=== PATIENT | female | born 1945 | race Caucasian/White ===

== ENCOUNTER 2017-05-11 11:00 | Outpatient (RCR) | payer BC, SELFPAY ==
--- NOTE | 2017-03-17 18:16 | HP.PTEVAL_ITS ---
Patient's Visit Information LEWIS SILVA is a 71 year old F referred to Physical Therapy by Saira Lockwood with a diagnosis of L unilateral knee arthroplasty. Date of Evaluation: 03/17/17 Physical Therapist: Reynaldo Santiago - Visit Plan Frequency: 2-3x /Week Duration: 4-6 Weeks Plan: Start with ROM exercises, ext progressing to flexion. Add in quad/HS activiation exercises. Use of bike for motion and use of ice and vaso for edema control. Pt. instructed to follow up with physician about skin irritation in case the irritation warrants treatment - Subjective Subjective: Pt. is here today for her initial evaluation after unlilateral knee arthoplasty L knee. DOS: 03/11/17 completed as outpatient. Pt. is a plesant 71 y.o. female who is known to this PT after having R unilateral knee arthroplasty earlier this year. She reports that she is doing better than last time as this point. She does have pain, but not more than expected. She removed her bandaging last night, but did notice some blistering where the adhesive had been. She reports being HEP compliant with exercises from physician. Pt. arrives with walker this date and is walking with step to pattern. She denies N/ T and has no calf pain. Pt. has been getting around her house as expected. Pt. is hopeful to improve gait and ROM in order to get back to work and recreational activities without limitations. - Pain L knee Pain Intensity (Out of 10): 6 Pain Intensity Range: 5, 8 - Objective POSTURE: Pt. has decreased L wt. shift in stance, slight knee flexion during stance. Pt. uses FWW to off load. PALPATION: Pt. has normal incision at anter aspect of L knee. Pt. does have 3 blisters that have formed around incsion at steristrips. (Appears to be skin irritation). Negative sarah's sign bilaterally. Pt. has expected warmth, no other signs of infection or DVT. NEUROLOGICAL: Pt. has normal sensation to light and sharp touch throughout bilateral LEs. Pt. has 2+ bilateral achilles DTR. Pt. is able to rise on heels and toes without signs of weakness, but does need AD to stabilize. ROM: L knee - 0-5-71deg active. PROM L knee 0-4-78deg. Pt. has normal hip ROM bilaterally. MMT: RLE- ankle 5/5 througout; knee- ext 5-/5, flexion 5-/5; hip- flexion 4+/5 , abd 4/5, ext 4+/5. LLE- ankle 5/5 throughout; knee- ext 3+/5, flexion 3+/5; hip- flexion 3+/5, abd 4-/5, ext 4-/5. GAIT: Pt. ambulates with walker MANUEL without issues. Pt has decreased R step length with decreased L stance phase. Pt. lacks TKE during stance phase on L side and overall decreased tempo. STAIRS : step to pattern loading RLE only, use of BHR to complete. - Goals Goal 1:: Pt. to be I with HEP. Goal Time Frame: 4-6 Weeks Goal 2:: Pt. to have increased L knee ROM to 0-0-120deg allowing for increased tolerance to complete all functional mobility and ADLs. Goal Time Frame: 4-6 Weeks Goal 3:: Pt. to ambulate without AD unlimited distances with 0-1/10 pain in L knee allowing for increased functional mobility. Goal Time Frame: 4-6 Weeks Goal 4:: Pt. to have increased LLE strength by 1/2 grade of all effected musculature allowing increased ability to complete all functional mobility. Goal Time Frame: 4-6 Weeks Goal 5:: Pt. to sleep throughout the night with 0-1/10 pain allowing for increased quality of life. Goal Time Frame: 4-6 Weeks Goal 6:: Pt. to negotiate 1 flight of stairs with reciprocal pattern with use of 1 HR with 0-1/10 pain in L knee. Goal Time Frame: 4-6 Weeks - Rehabilitation Potential Physical Therapy Diagnosis: Pt. has signs and symptoms consistent with L unliateral knee arthroplasty. Pt. has subsequent hypomobility, weakness, increased edema, difficulty with gait and increased pain. Pt. would benefit from PT to increase ROM, decrease edema, improve functional mobility and decreased pain. Rehabilitation Potential: Excellent - Anticipated Interventions Patient/Client Instruction: Educate patient on: Condition, Plan of Care, Risk Factors, Benefits of Fitness Program For the Purpose of:: To improve health and function, To foster healthy habits, To improve decision making, To facilitate caregiver knowledge, To improve self management, To prevent re-injury, To improve ability to perform tasks related to life management, To improve tolerance to ADL's Therapeutic Exercise to Include: Strength training, Power training, Endurance training, Balance training, Postural training, Flexibilty training, Gait and locomotor training, Passive ROM, Active ROM For the Purpose of:: To decrease pain, To decrease swelling/inflammation, To increase ROM, To improve nutrient delivery to tissue, To improve muscle performance and motor function, To improve ability to perform ADL's, To increase tolerance to activity/condition/position, To improve performance and independence with ADL's, To decrease level of supervision to perform tasks, To improve gait and locomotor functions, To improve health of tissue, To decrease soft tissue restriction, To increase flexibility/ROM, To improve endurance, To improve balance, To improve safety with gait IF ES: Yes Cryotherapy (ice pack, ice massage): Yes Vasopneumatic device: Yes For the Purpose of:: To decrease pain, To decrease swelling/inflammation, To increase ROM Thank you for the opportunity to evaluate your patient. For Medicare and Medicare HMO plans, please review the plan of care and approve it. It will need to be FAXED BACK to us at [phone] for Medicare purposes. Please let me know if there are questions or concerns regarding this plan of care. Physician Signature: Date:
== END 2017-05-11 11:30 | disposition home or self-care (01) ==
LOC: PT 11:00
PROVIDERS: Family Provider Family Medicine; PCP Family Medicine; Visit Provider Physician Assistant
DX: M17.12 Unilateral primary osteoarthritis, left knee (principal)
CPT/HCPCS: 97016; 97110; 97161

== ENCOUNTER → 2017-05-26 09:59 | Outpatient (CLI) | payer BC, SELFPAY ==
[2017-05-26 11:54] LABS: Pathologist Comment May follow
[2017-05-26 11:56] LABS: AUTO B FLUID DILUENT BKGD CT WBC <0.1 RBC <0.01 (W<.1,R<.01); Appearance /Synovial Fluid Sl Cl (CLEAR); CRYSTALS, BODY FLUID CALCIUM PYROPHOS; Color / Synovial Fluid Yellow (Pale Yellow); RBC /Synovial Fluid 0.004 10^6/uL (0); Source / Synovial Fluid R KNEE; Source- Body Fluid SYNOVIAL; Synovial Fld Mononuclear WBC % 78.9 %; Synovial Fld Polynuclear WBC # 0.143 10^3/ul; Synovial Fld Polynuclear WBC % 21.1 %
[2017-05-26 11:57] LABS: Synovial Fld Mononuclear WBC # 0.536 10^3/ul
[2017-05-26 12:09] LABS: Body Fluid QC Type(s) BF1Q,BF2Q; Lymph 41 %; Monocyte /Synovial Fluid 49 %; Neutrophil 10 % (0-25)
[2017-05-27 12:41] LABS: Pathologist Review Reviewed
== END ==
PROVIDERS: Family Provider Family Medicine; PCP Family Medicine; Visit Provider Orthopaedic Surgery
DX: M25.462 Effusion, left knee (principal); Z96.652 Presence of left artificial knee joint
CPT/HCPCS: 87070; 87075; 87205; 89050; 89051; 89060

== ENCOUNTER → 2017-09-06 08:35 | Outpatient (CLI) | payer BC, SELFPAY ==
--- NOTE | 2017-09-06 08:35 | DT_ITS ---
This patient was seen during an EMR downtime September 06, 2017 - September 13, 2017. This patient may have a combination of paper and electronic documentation or all paper documentation. All documentation is viewable within the e-chart portion of [facility] for each patient visit.
[2017-09-12 03:02] LABS: Anion Gap 9 (5-15); BUN 20 mg/dL (7-18); BUN/Creat Ratio 29.9 RATIO (10-20); Calcium,Total 8.9 mg/dL (8.5-10.1); Chloride 108 mmol/L (98-107); Cholesterol 196 mg/dL (200); Creatinine, Serum 0.67 mg/dL (0.55-1.02); EST Glomerular Filtration Rate 92 mL/min (>60); Est Glom Filt Rate - Afr Amer 112 mL/min (>60); Glucose 96 mg/dL (74-106); High Density Lipoprotein 43 mg/dL; Sodium Level 143 mmol/L (136-145); Thyroid Stim Hormone (TSH) 1.01 uIU/mL (0.358-3.74); Triglycerides 147 mg/dL; Very Low Density Lipoprotein 29 mg/dL (5-40)
[2017-09-12 04:06] LABS: Hemoglobin 13.2 g/dl (12.0-15.0); Red Blood Count 4.17 M/mm3 (4.2-5.4); White Blood Count 6.1 K/mm3 (4.4-11.0)
[2017-09-12 04:07] LABS: Absolute Neutrophil Count 3.2 X10^3/uL (2.0-7.7); Basophil% 0.3 % (0-1); Eosinophils% 4.3 % (0-5); Hematocrit 40.9 % (37-47); Lymphocyte % 34.7 % (19-41); Mean Corp Hgb Conc 32.3 g/gl (32-36); Mean Corpuscular Hgb 31.7 pg (27.0-32.0); Mean Corpuscular Volume 98.1 fL (81-99); Monocyte% 7.8 % (0-10); Neutrophil # 3.19 X10^3/uL (2.7-7.7); Neutrophil % 52.7 % (47-70); POSITIVE COUNT NO; POSITIVE DIFFERENTIAL NO; POSITIVE MORPHOLOGY NO; Platelet Count 234 K/mm3 (150-450); RBC Distribution Width SD 49.3 fl (35.1-43.9)
[2017-09-12 04:08] LABS: Basophil# 0.02 X10^3/uL; Eosinophil# 0.26 X10^3/uL; Monocyte# 0.47 X10^3/uL
== END ==
PROVIDERS: Family Provider Family Medicine; PCP Family Medicine; Visit Provider Family Medicine
DX: I10 Essential (primary) hypertension (principal); E78.5 Hyperlipidemia, unspecified
CPT/HCPCS: 36415; 80048; 80061; 84443; 85025

== ENCOUNTER → 2017-09-18 07:39 | Outpatient (CLI) | payer BC, MEDICARE, SELFPAY ==
--- NOTE | 2017-09-18 07:48 | BI_ITS ---
MAMMOGRAPHY - BILATERAL SCREENING REASON FOR EXAM: Female, 72 years old. Routine annual screening examination. PERTINENT HISTORY: Grandmother with breast cancer. TECHNIQUE: Digital bilateral breast scottie (3D mammographic acquisition) in the CC and MLO projections. 2-D mediolateral oblique (MLO) and craniocaudad (CC) views of both breasts were obtained. CAD: Full Field Digital Mammography with Computer Added Detection was performed. COMPARISON: None. Baseline examination. FINDINGS: Breast Composition: There are scattered areas of fibroglandular density. There are no dominant masses or suspicious calcifications. No other significant abnormalities are identified. BI/SCREENING MAMM (CAD), BILAT IMPRESSION: Negative screening mammogram. Yearly followup mammogram recommended. (A) ASSESSMENT CATEGORY: BIRADS Category 1: Negative. A letter regarding these results will be sent to the patient by the facility within 30 days. Approximately 10% of breast cancers are not detected by mammography. A normal mammogram should not delay biopsy of a clinically suspicious abnormality. [id number] Electronically Signed: Elias John MD at 14:40 EDT Tel [phone], Service support ,
== END ==
PROVIDERS: Family Provider Family Medicine; PCP Family Medicine; Visit Provider Family Medicine
DX: Z12.31 Encounter for screening mammogram for malignant neoplasm of breast (principal)
CPT/HCPCS: 77063; 77067

== ENCOUNTER 2017-09-20 12:29 | Inpatient (IN) | payer BC, SELFPAY ==
[2017-09-14 13:22] VITALS: BP 145/75; PULSE 85; RESP 18; TEMP 36.6; O2SAT 97; BMI 35.2
[2017-09-14 16:53] LABS: Erythrocyte Sedimentation Rate 21 mm/hr (0-30)
[2017-09-20] VITALS (10 sets, daily range): BP systolic 94–183; BP diastolic 7–85; PULSE 69–80; RESP 14–18; TEMP 35.9–37.1; O2SAT 79–99; BMI 35.2
[2017-09-20] MEDS: Acetaminophen 500 MG Tablet 1000 MG PO ×2 (13:07→22:33)
[2017-09-20] MEDS: oxyCODONE HCl Cr 10 MG Tablet PO (13:08)
--- NOTE | 2017-09-20 16:40 | RAD_ITS ---
STUDY: X-RAY - LEFT KNEE REASON FOR EXAM: Female, 72 years old. Postop TECHNIQUE: 2 view(s) of the knee. COMPARISON: None. FINDINGS: Status post total left knee replacement changes are seen with implants appearing in good position. Soft tissue gas is noted anteriorly consistent with history of recent surgery. RAD/Knee 1 or 2 Views IMPRESSION: Status post total left knee replacement changes seen with implants appearing in good position. Electronically Signed: Driss Moore MD at 20:46 EDT , Service support ,
[2017-09-20] MEDS: Lactated Ringers 1,000 ML 125 ML IV (18:26)
[2017-09-20] MEDS: Aspirin 325 MG Tablet PO (18:27)
[2017-09-20] MEDS: oxyCODONE 5 MG Tablet PO ×2 (18:32→22:32)
[2017-09-20] MEDS: Losartan Potassium 100 MG Tablet PO (22:32)
[2017-09-20] MEDS: hydroCHLOROthiazide 25 MG Tablet PO (22:32)
[2017-09-21 03:11] VITALS: BP 139/75; PULSE 71; RESP 16; TEMP 36.9; O2SAT 97
[2017-09-21] MEDS: oxyCODONE 5 MG Tablet PO ×5 (04:09→21:26)
[2017-09-21] MEDS: Acetaminophen 500 MG Tablet 1000 MG PO ×3 (06:27→21:26)
[2017-09-21 06:39] LABS: Hematocrit 40.4 % (37-47); Hemoglobin 13.6 g/dl (12.0-15.0); Mean Corp Hgb Conc 33.7 g/gl (32-36); Mean Corpuscular Hgb 31.6 pg (27.0-32.0); Mean Corpuscular Volume 93.7 fL (81-99); Mean Platelet Vol. 9.6 fl (6.2-12.0); Platelet Count 204 K/mm3 (150-450); RBC Distribution Width CV 13.8 % (11.6-14.6); RBC Distribution Width SD 47.5 fl (35.1-43.9); Red Blood Count 4.31 M/mm3 (4.2-5.4); White Blood Count 7.8 K/mm3 (4.4-11.0)
[2017-09-21 06:43] LABS: Scan Indicated on CBC? Y/N NO
[2017-09-21 06:57] LABS: Anion Gap 8 (5-15); BUN 12 mg/dL (7-18); Calcium,Total 8.5 mg/dL (8.5-10.1); Chloride 104 mmol/L (98-107); Creatinine, Serum 0.63 mg/dL (0.55-1.02); EST Glomerular Filtration Rate 99 mL/min (>60); Est Glom Filt Rate - Afr Amer 120 mL/min (>60); Glucose 100 mg/dL (74-106); Potassium 3.8 mmol/L (3.5-5.1); Sodium Level 136 mmol/L (136-145)
[2017-09-21 08:13] VITALS: BP 138/70; PULSE 85; RESP 18; TEMP 37.3; O2SAT 95
[2017-09-21] MEDS: Aspirin 325 MG Tablet PO ×2 (08:17→17:10)
[2017-09-21] MEDS: Multivitamins,Therapeutic Tablet 1 TABLET PO (08:17)
[2017-09-21 08:20] VITALS: PULSE 92
--- NOTE | 2017-09-21 09:38 | PCM.PN.ORT ---
Subjective: Patient is resting comfortably in chair at bedside during exam. No adverse events overnight. Nurse states that she did bleed through that her dressing they did reinforce it and change it. The bleeding has slowed. Patient currently denies chest pain, shortness of breath, dizziness, calf pain. Doing well overall is making considerations for discharge to home later today. Objective: Patient is alert and oriented ?3. No acute distress at rest. Breathing easily without respiratory distress. Inspection of left knee reveals minimal dried bloody drainage. Negative Jayy bilaterally. Without signs of DVT. Sensation intact light touch bilateral lower extremities. Patient is able to actively plantar and dorsiflex bilateral feet against resistance. Neurovascularly intact. - Physical Exam Vital Signs Temp Pulse Resp BP Pulse Ox 99.1 F 92 18 138/70 H 95 09/21/17 08:13 09/21/17 08:20 09/21/17 08:13 09/21/17 08:13 09/21/17 08:13 Oxygen Delivery Method Room Air Weight: 83.1 kg Body Mass Index (BMI) 35.2 Intake and Output for Last 24 Hours 09/19/17 09/20/17 09/21/17 23:59 23:59 23:59 Intake Total 1700 / 1700 1974 Balance 1700 / 1700 1974 Laboratory Tests Past 24 Hrs 09/21/17 09/21/17 06:24 06:24 WBC 7.8 RBC 4.31 Hgb 13.6 Hct 40.4 MCV 93.7 MCH 31.6 MCHC 33.7 RDW 13.8 RDW Differential 47.5 H Plt Count 204 MPV 9.6 Sodium 136 Potassium 3.8 Chloride 104 Carbon Dioxide 24.0 Anion Gap 8 BUN 12 Creatinine 0.63 Estim Creat Clear Calc 37.60 Est GFR (MDRD) Af Amer 120 Est GFR (MDRD) Non-Af 99 BUN/Creatinine Ratio 19.0 Glucose 100 Calcium 8.5 Medical Necessity - Tobacco Use Smoking Status: Former smoker Tobacco Use: Cigarettes Assessment/Plan 1. Status post left TKA; postop day #1 2. Continue OxyIR and Tylenol for pain control 3. DVT prophylaxis; bilateral teds, SCDs and begin aspirin therapy 4. Begin PT/OT; weightbearing as tolerated left lower extremity with a walker 5. Encourage incentive spirometry 6. Continue discharge planning with case management 7. Orthopedically stable okay for discharge to home today if having adequate pain control and moving well with physical therapy
--- NOTE | 2017-09-21 09:45 | PCM.DC.TKR ---
Discharge Diet: No Restrictions Discharge Activity: May Not Drive, May not drive while taking narcotic pain medications., Use Walker May shower in (days): 3 Ice area for (Minutes): 20 - every hour while awake. Weight Bearing Status: Weight bearing as tolerated Elevate: Operative Extremity Additional Activity Instructions:: Wear elastic stockings for 2 weeks after your surgery. See postoperative pink sheet Call your doctor if your incision/area has: Continuous Slow Oozing, Sudden Increased Bleeding, Increased Pain/ Swelling, Increased Redness, Foul Smelling Discharge Call your doctor if you observe: Fever of 101 or Higher, Coldness, Increased Pain, Numbness or Tingling, Change in Color, Shortness of breath, Chest pain, Calf discomfort, Uncontrolled pain Remove Dressing in (days):: 3 Cleanse incision/area with: Soap & Water Additional Dressing/Incision Instructions:: See postoperative pink sheet Allergies/Adverse Reactions: Allergies Penicillins Allergy (Verified 09/14/17 13:15) Hives etodolac Adverse Reaction (Verified 09/14/17 13:16) Upset Stomach lisinopril Adverse Reaction (Verified 09/14/17 13:15) COUGH Medications to take at Discharge Cholecalciferol (VIT D3) [Vitamin D3] 1,000 unit PO MOWEFR 12/14/16 Losartan/Hydrochlorothiazide [Losartan-Hctz 100-25 mg Tab] 1 each PO DAILY 12/14/16 Multivitamin [Multiple Vitamins] 1 each PO DAILY 12/14/16 Acetaminophen [Tylenol] 1,000 mg PO Q8 #60 tab 09/21/17 Aspirin 325 mg PO BIDCM #28 tab 09/21/17 Oxycodone [Oxyir] 5 - 10 mg PO Q4H PRN PRN 7 Days #56 tablet 09/21/17 The following prescriptions were given: Oxycodone [Oxyir] 5 - 10 mg PO Q4H PRN PRN 7 Days #56 tablet PRN Reason: Mod-Severe Pain (4-1010) Acetaminophen [Tylenol] 1,000 mg PO Q8 #60 tab Aspirin 325 mg PO BIDCM #28 tab Primary Care Physician: Johny Tabor MD [Primary Care Provider] -
[2017-09-21] MEDS: Losartan Potassium 100 MG Tablet PO (09:51)
[2017-09-21] MEDS: hydroCHLOROthiazide 25 MG Tablet PO (09:51)
--- NOTE | 2017-09-21 10:39 | CASEMGMT ---
LAM DAS Face to Face with patient for initial transition planning/care coordination assessment. RN PIPPA introduced self and role at [facility]. Patient sitting in chair, alert and oriented, at bedside. Patient willing to participate in assessment and is able to answer all questions appropriately. Care providers, pharmacy, and demographics verified. See link attached. Patient wishes to discharge home and is setup with [facility] for outpatient therapy with providing transportation. Patient states she has no further needs or concerns at this time. CM to follow for discharge planning needs that may arise. Disposition Plan: Patient to discharge home with outpatient therapy, family support, and follow-up plans in place.
[2017-09-21 15:10] VITALS: BP 141/77; PULSE 83; RESP 18; TEMP 37.5; O2SAT 95
[2017-09-21] MEDS: 0.9% NaCl Peripheral Flush Adult/Peds IV (15:28)
[2017-09-21] MEDS: Ketorolac 15 MG/ML Vial IV (15:29)
[2017-09-21 20:02] VITALS: BP 121/65; PULSE 80; RESP 16; TEMP 37.1; O2SAT 95
[2017-09-22] MEDS: oxyCODONE 5 MG Tablet PO ×4 (01:21→13:45)
[2017-09-22 02:34] VITALS: BP 145/63; PULSE 77; RESP 16; TEMP 36.9; O2SAT 97
[2017-09-22 06:21] LABS: Hematocrit 40.6 % (37-47); Hemoglobin 13.4 g/dl (12.0-15.0); Mean Corpuscular Hgb 31.7 pg (27.0-32.0); Mean Platelet Vol. 9.5 fl (6.2-12.0); Platelet Count 180 K/mm3 (150-450); RBC Distribution Width SD 48.8 fl (35.1-43.9); Red Blood Count 4.23 M/mm3 (4.2-5.4); White Blood Count 8.7 K/mm3 (4.4-11.0)
[2017-09-22] MEDS: Acetaminophen 500 MG Tablet 1000 MG PO ×2 (06:21→13:44)
[2017-09-22] MEDS: Ketorolac 15 MG/ML Vial IV (06:21)
[2017-09-22] MEDS: 0.9% NaCl Peripheral Flush Adult/Peds IV (06:21)
[2017-09-22 06:24] LABS: Scan Indicated on CBC? Y/N NO
[2017-09-22 07:42] VITALS: BP 139/66; PULSE 86; RESP 18; TEMP 37.1; O2SAT 97
[2017-09-22] MEDS: Multivitamins,Therapeutic Tablet 1 TABLET PO (07:50)
[2017-09-22] MEDS: Aspirin 325 MG Tablet PO (07:50)
[2017-09-22] MEDS: hydroCHLOROthiazide 25 MG Tablet PO (08:20)
[2017-09-22] MEDS: Losartan Potassium 100 MG Tablet PO (08:20)
--- NOTE | 2017-09-22 11:56 | PCM.PN.ORT ---
Subjective: Patient sitting at bedside with her at her side. Pain well managed. Ready for discharge home. No other complaints. Objective: Dressings clean dry intact. Negative signs symptoms of DVT. Vital signs labs all within normal limits. Patient is afebrile neurovascular is otherwise intact. - Physical Exam General: Alert, Oriented x3 Psych/Mental Status: Alert and oriented to time, place, person, mood and affect Vital Signs Temp Pulse Resp BP Pulse Ox 98.8 F 86 18 139/66 H 97 09/22/17 07:42 09/22/17 07:42 09/22/17 07:42 09/22/17 07:42 09/22/17 07:42 Oxygen Delivery Method Room Air Weight: 83.1 kg Body Mass Index (BMI) 35.2 Intake and Output for Last 24 Hours 09/20/17 09/21/17 09/22/17 23:59 23:59 23:59 Intake Total 1700 / 1700 2415 / 2415 400 / 400 Balance 1700 / 1700 2415 / 2415 400 / 400 Laboratory Tests Past 24 Hrs 09/22/17 05:38 WBC 8.7 RBC 4.23 Hgb 13.4 Hct 40.6 MCV 96.0 MCH 31.7 MCHC 33.0 RDW 14.0 RDW Differential 48.8 H Plt Count 180 MPV 9.5 Medical Necessity - Tobacco Use Smoking Status: Former smoker Tobacco Use: Cigarettes Assessment/Plan Status post revision total knee 1. Continue all pain medication as prescribed 2. Continue all medications as prescribed 3. Begin outpatient therapy at [facility] 4. Follow-up as scheduled 5. Discharge home today
[2017-09-22 11:58] VITALS: BP 129/45; PULSE 94; RESP 18; TEMP 36.7; O2SAT 100
--- NOTE | 2017-09-22 15:57 | NURSING ---
Patient and family state that Dr. Aviles's PA Cynthia told them that patient could take Motrin PM if needed to help control pain. This RN notified patient and family that motrin should not be used routinely due to increased risk for stomach ulcers/ bleeding. Understanding verbalized.
== END 2017-09-22 15:46 | disposition home or self-care (01) | DRG 468 ==
LOC: ACINP 12:32 → MS3 13:52
PROVIDERS: Admitting Provider Orthopaedic Surgery; Family Provider Family Medicine; PCP Family Medicine; Visit Provider Orthopaedic Surgery
PROC: 0SPD0JZ Removal of Synthetic Substitute from Left Knee Joint, Open Approach (ICD-10-PCS; CPT 27447; principal; 2017-09-20 13:35)
DX: T84.033A Mechanical loosening of internal left knee prosthetic joint, initial encounter (principal); Z96.653 Presence of artificial knee joint, bilateral; Z98.0 Intestinal bypass and anastomosis status; I10 Essential (primary) hypertension; Z87.891 Personal history of nicotine dependence
CPT/HCPCS: 36415; 73560; 80048; 85027; 85652; 86140; 87077; 87081; 97116; 97162; 97165; 97530; 97535; C1776; J7120; A4216; J3490

== ENCOUNTER 2018-07-19 12:21 | Emergency (ER) | payer MEDICARE, SELFPAY ==
[2018-07-19 12:21] VITALS: BP 209/90; PULSE 95; RESP 20; TEMP 36.4; O2SAT 96; BMI 36.1
--- NOTE | 2018-07-19 12:37 | CT_ITS ---
STUDY: CT BRAIN WITHOUT CONTRAST REASON FOR EXAM: Female, 73 years old. History of fall. RADIATION DOSAGE (If Supplied By Facility): CTDIvol = ( 44.99 ) mGy, DLP = ( 779.24 ) mGycm TECHNIQUE: Transaxial CT imaging of the brain was performed without administration of intravenous contrast material. Individualized dose optimization techniques were used for this CT. COMPARISON: No relevant priors. FINDINGS: Normal soft tissue structures. Normal calvarium. Normal size ventricles and extra-axial spaces for the patient's age. Normal white matter tracts of the cerebral hemispheres. There are small punctate calcifications of the basal ganglia which are seen in the aging brain as a normal variant. Normal brainstem. Normal cerebellum. There is no intracranial hemorrhage. There are no findings of an acute ischemic infarction. Normal visualized paranasal sinuses. CT/Brain/Head without Contrast IMPRESSION: No acute abnormality is seen. Electronically Signed: Elias John, at 15:31 EDT , Service support ,
--- NOTE | 2018-07-19 12:38 | CT_ITS ---
STUDY: CT CERVICAL SPINE WITHOUT CONTRAST REASON FOR EXAM: Female, 73 years old. History of fall. RADIATION DOSAGE (If Supplied By Facility): CTDIvol = ( 28.33 ) mGy, DLP = ( 589.06 ) mGycm TECHNIQUE: High resolution transaxial imaging was performed without contrast material. Sagittal and coronal images were reconstructed. Individualized dose optimization techniques were used for this CT. COMPARISON: None FINDINGS: Normal craniovertebral junction. There are degenerative changes of the anterior atlantoaxial articulation. Normal odontoid process. There is straightening of the normal cervical lordosis. Normal vertebral bodies and posterior osseous elements. C2-3: Normal endplates. Normal disc height and morphology. Normal central canal and intervertebral neuroforamina. C3-4: Normal endplates. Normal disc height and morphology. Normal central canal and intervertebral neuroforamina. C4-5: Normal endplates. Normal disc height and morphology. Normal central canal and intervertebral neuroforamina. C5-6: Moderate degree of disc space narrowing and spondylosis. Uncovertebral arthrosis. Mild degree of bilateral neural foraminal stenosis worse on the right side. C6-7: Moderate degree of disc space narrowing. Spondylosis. Uncovertebral arthrosis with mild degree of bilateral neural foraminal stenosis. C7-T1: Normal endplates. Normal disc height and morphology. Normal central canal and intervertebral neuroforamina. Normal visualized soft tissue structures. CT/Spine Cervical without Contras IMPRESSION: Multilevel degenerative changes, as described above. Electronically Signed: Elias John, at 15:33 EDT , Service support ,
--- NOTE | 2018-07-19 12:38 | CT_ITS ---
STUDY: CT ABDOMEN AND PELVIS WITHOUT CONTRAST REASON FOR EXAM: Female, 73 years old. History of fall. RADIATION DOSAGE (If Supplied By Facility): CTDIvol = ( 15.41 ) mGy, DLP = ( 1160.02 ) mGycm TECHNIQUE: Transaxial images were obtained from the dome of the diaphragm to the symphysis pubis without oral contrast, and without intravenous contrast. Sagittal and coronal images were reconstructed. Individualized dose optimization techniques were used for this CT. COMPARISON: None. FINDINGS: Minimal increased markings at the lung bases suggestive of atelectasis. Coronary artery calcification. There is decreased attenuation of the liver consistent with steatosis. Normal gallbladder and extrahepatic biliary system. Normal spleen. Normal pancreas. Normal bilateral adrenal glands. Normal right kidney. Normal left kidney. Normal visualized stomach. Normal small intestine. Normal colon. The appendix is visualized and appears normal. There is diffuse atherosclerotic calcification of the abdominal aorta, without a demonstrated aneurysm. Normal inferior vena cava. There is borderline retroperitoneal lymphadenopathy with enlarged nodes no greater than 10mm in the short axis diameter. Normal urinary bladder. Normal abdominal wall. There are degenerative changes of the visualized lumbar spine. CT/Abdomen/Pelvis W IV Cont ONLY IMPRESSION: Fatty infiltration of the liver. Electronically Signed: Elias John, at 15:35 EDT , Service support ,
[2018-07-19] MEDS: Morphine 4 MG/ML Syringe IV (13:01)
[2018-07-19] MEDS: 0.9% Normal Saline 1,000 ML 150 ML IV (13:01)
[2018-07-19] MEDS: Ondansetron 4 MG/2 ML Vial IV (13:01)
[2018-07-19 13:30] LABS: Absolute Lymphocyte Count 2.55 X10^3/ul (0.83-4.51); Absolute Neutrophil Count 5.4 X10^3/uL (2.0-7.7); Basophil# 0.03 X10^3/uL; Basophil% 0.3 % (0-1); Eosinophil# 0.15 X10^3/uL; Eosinophils% 1.7 % (0-5); Hematocrit 41.7 % (37-47); Lymphocyte # 2.55 X10^3/ul (4.0); Lymphocyte % 29.5 % (19-41); Mean Corp Hgb Conc 33.6 g/gl (32-36); Mean Corpuscular Hgb 32.2 pg (27.0-32.0); Mean Corpuscular Volume 95.9 fL (81-99); Monocyte# 0.51 X10^3/uL; Monocyte% 5.9 % (0-10); Neutrophil # 5.37 X10^3/uL (2.7-7.7); Neutrophil % 62.4 % (47-70); Platelet Count 268 K/mm3 (150-450); RBC Distribution Width CV 13.6 % (11.6-14.6); RBC Distribution Width SD 47.6 fl (35.1-43.9); Red Blood Count 4.35 M/mm3 (4.2-5.4); White Blood Count 8.6 K/mm3 (4.4-11.0)
[2018-07-19 13:31] LABS: POSITIVE COUNT NO; POSITIVE DIFFERENTIAL NO; POSITIVE MORPHOLOGY NO
[2018-07-19 13:38] LABS: Anion Gap 5 (5-15); BUN 20 mg/dL (7-18); BUN/Creat Ratio 30.3 RATIO (10-20); Chloride 107 mmol/L (98-107); Creatinine, Serum 0.66 mg/dL (0.55-1.02); EST Glomerular Filtration Rate 94 mL/min (>60); Est Glom Filt Rate - Afr Amer 113 mL/min (>60); Estimated Creatinine Clearance 37.06 ml/min; Glucose 92 mg/dL (74-106); Potassium 3.8 mmol/L (3.5-5.1); Sodium Level 139 mmol/L (136-145)
[2018-07-19 13:43] LABS: Bacteria 0 SEEN /hpf (None Seen); Mucous, Urine 0 SEEN /hpf (<or=2+); Red Blood Cells-Urine 0 SEEN /hpf (0-5)
[2018-07-19 13:51] LABS: Color, Urine Yellow (Yellow); Glucose, Dipstick Normal (Normal); Ketone-Dipstick Negative (Negative); Leukocyte Esterase-Dipstick 500 /ul (Negative); Nitrite-Dipstick Negative (Negative); Occult Blood-Urine 10 /ul (Negative); Protein-Dipstick 15 mg/dl (Negative); Specific Gravity, Urine 1.025 (1.002-1.030); Urine Bilirubin Dipstick Negative (Negative); Urine Clarity Sl. Cloudy (Clear); Urine Urobilinogen Normal (Normal)
[2018-07-19 14:03] LABS: Squamous Epithelial Cells - UA 0-5 SEEN /hpf (5-10); White Blood Cells >100 SEEN /hpf (0-5)
[2018-07-19 14:21] VITALS: BP 146/74; PULSE 83; RESP 14; O2SAT 98
[2018-07-19] MEDS: Acetaminophen 325 MG Tablet 650 MG PO (15:04)
--- NOTE | 2018-07-19 15:54 | ED.DCSUM_ITS ---
- ER Visit Summary Date of Service: 07/19/18 Chief Complaint: [Fall with head and back injury] History of Present Illness: The patient is a 73 F presents to the emergency department after sustaining a fall while walking out of the shower. Patient states she slipped on the step out of the shower and fell backwards striking her neck and back of her head on the tub and her back on the step of the shower. Patient denies loss of consciousness. Patient does complain of headache. Patient complains of pain in her left flank and lower back. She denies any pain rating down her legs. She had no vomiting. [] Physical Examination: [HEENT-PERRLA, EOMI. Cranial nerves II through XII g rossly intact. TMs clear. Mucous membranes moist. No adenopathy. Patient has an area of erythema to the left posterior occiput and base of the neck. Patient has some mild C-spine tenderness on palpation. Cardiovascular-regular rate and rhythm without murmur or ectopy Lungs-clear to auscultation, chest wall stable without crepitus or subcu emphysema Abdomen-normoactive bowel sounds, soft, nontender, no rebound or rigidity, no peritoneal signs. Back exam-patient has tenderness over the left flank. There is no ecchymosis or bruising noted. Patient has some diffuse tenderness over lumbar spine. She has negative straight leg raises. Deep tendon reflexes are plus 2 out of 4 bilaterally at the patella and Achilles. Patient has normal sensation to light touch. Extremities-intact ?4, normal range of motion, normal pulses, atraumatic] Test Results: [CT scan of the brain without contrast was unremarkable. CT scan of the cervical spine showed some degenerative changes but no fractures. CT scan of the abdomen pelvis showed nothing acute. CBC with differential is normal. Chemistries unremarkable. Urinalysis obtained showed 500 leukocyte esterase and greater than 100 WBCs.] Emergency Department Course and Treatment: [Patient was started on Bactrim. Patient was given morphine and Zofran in the emergency department.] Treatment Plan: [Patient will be started on Bactrim and Percocet for pain.] Disposition: [Discharged home in stable condition] Impression: [Mechanical fall Contusion back Contusion neck Close head injury Urinary tract infection] This note was generated with [employer] software. It may contain incorrect words, spelling, and punctuation that were not noted in review of the chart prior to signing ED Disposition - Plan for ED Patient: Referrals: Johny Tabor MD [Primary Care Provider] -
--- NOTE | 2018-07-19 15:54 | ED.DEP ---
ED Disposition - Plan for ED Patient: Instructions: ED Mechanical Fall, ED UTI Cystitis Female, ED Contusion Back, ED Head Injury Closed Prescriptions: Oxycodone HCl/Acetaminophen [Percocet 5/325] 1 tab PO Q6H PRN PRN 3 Days #12 tab PRN Reason: Pain Smz/Tmp Ds [Bactrim Ds] 1 tab PO BID #10 tab Referrals: Johny Tabor MD [Primary Care Provider] - 5-7 Days
[2018-07-19] MEDS: Smz/Tmp Ds Tablet 1 TABLET PO (16:03)
[2018-07-19 16:09] VITALS: BP 162/77; PULSE 71; RESP 16; O2SAT 97
== END 2018-07-19 16:20 | disposition home or self-care (01) ==
PROVIDERS: Emergency Provider Emergency Medicine; Family Provider Family Medicine; PCP Family Medicine
DX: S10.93XA Contusion of unspecified part of neck, initial encounter (principal); S30.0XXA Contusion of lower back and pelvis, initial encounter; S09.90XA Unspecified injury of head, initial encounter; N39.0 Urinary tract infection, site not specified; I10 Essential (primary) hypertension; Z79.899 Other long term (current) drug therapy; W01.198A Fall on same level from slipping, tripping and stumbling with subsequent striking against other object, initial encounter; Y93.E1 Activity, personal bathing and showering; Y92.002 Bathroom of unspecified non-institutional (private) residence as the place of occurrence of the external cause; Y99.8 Other external cause status
CPT/HCPCS: 70450; 72125; 74177; 80048; 81001; 85025; 87077; 87086; 87088; 87186; 96361; 96374; 96375; 99283; J7030; Q9967; A4216; J2405

== ENCOUNTER → 2019-11-06 | Outpatient (CLI) | payer MEDICARE, SELFPAY ==
[2019-04-17 10:03] VITALS: BMI 36.1
[2019-11-06 12:01] LABS: Absolute Lymphocyte Count 1.85 X10^3/uL (0.83-4.51); Absolute Neutrophil Count 2.6 X10^3/uL (2.0-7.7); Basophil# 0.02 X10^3/uL; Basophil% 0.4 % (0-1); Eosinophils% 3.9 % (0-5); Hematocrit 41.4 % (37-47); Hemoglobin 13.3 g/dL (12.0-15.0); Lymphocyte # 1.85 X10^3/ul (4.0); Lymphocyte % 35.6 % (19-41); Mean Corp Hgb Conc 32.1 g/dL (32-36); Mean Corpuscular Hgb 31.7 pg (27.0-32.0); Mean Corpuscular Volume 98.6 fL (81-99); Mean Platelet Vol. 10.6 fl (6.2-12.0); Monocyte# 0.47 X10^3/uL; Monocyte% 9.1 % (0-10); NRBC Flagged by Analyzer 0 % (0-5); Neutrophil # 2.64 X10^3/uL (2.7-7.7); Neutrophil % 50.8 % (47-70); Platelet Count 238 K/mm3 (150-450); RBC Distribution Width CV 13.5 % (11.6-14.6); RBC Distribution Width SD 48.4 fl (35.1-43.9); White Blood Count 5.2 K/mm3 (4.4-11.0)
[2019-11-06 12:26] LABS: Anion Gap 5 (5-15); BUN 16 mg/dL (7-18); BUN/Creat Ratio 22.7 RATIO (10-20); Calcium,Total 8.8 mg/dL (8.5-10.1); Chloride 103 mmol/L (98-107); EST Glomerular Filtration Rate 87 mL/min (>60); Est Glom Filt Rate - Afr Amer 105 mL/min (>60); Glucose 93 mg/dL (74-106); Potassium 4.5 mmol/L (3.5-5.1); Sodium Level 139 mmol/L (136-145)
== END | disposition home or self-care (01) ==
LOC: BFHLAB 09:42
PROVIDERS: PCP Family Medicine; Visit Provider Family Medicine
DX: I10 Essential (primary) hypertension (principal)
CPT/HCPCS: 36415; 80048; 85025

== ENCOUNTER → 2019-11-14 10:43 | Outpatient (CLI) | payer MEDICARE, SELFPAY ==
[2019-04-17 10:03] VITALS: BMI 36.1
--- NOTE | 2019-11-14 11:05 | BI_ITS ---
MAMMOGRAPHY - BILATERAL SCREENING REASON FOR EXAM: Female, 74 years old. Routine annual screening examination. PERTINENT HISTORY: Grandmother with breast cancer. TECHNIQUE: Digital bilateral breast darleen (3D mammographic acquisition) in the CC and MLO projections. 2-D mediolateral oblique (MLO) and craniocaudad (CC) views of both breasts were obtained. CAD: Full Field Digital Mammography with Computer Added Detection was performed. COMPARISON: Comparison is made with prior examination dated 09/18/2017. FINDINGS: Breast Composition: There are scattered areas of fibroglandular density. There are no dominant masses or suspicious calcifications. Stable small benign appearing bilateral axillary No other significant abnormalities are identified. There has been no significant change since the prior study. BI/SCREEN MAMM (CAD) W/DARLEEN BILAT IMPRESSION: Stable bilateral screening mammogram. Yearly follow-up mammogram recommended. (A) ASSESSMENT CATEGORY: BIRADS Category 2: Benign. A letter regarding these results will be sent to the patient by the facility within 30 days. Approximately 10% of breast cancers are not detected by mammography. A normal mammogram should not delay biopsy of a clinically suspicious abnormality. [id number] Electronically Signed: Elias John, at 13:54 EDT , Service support ,
== END ==
PROVIDERS: PCP Family Medicine; Referring Provider Family Medicine; Visit Provider Family Medicine
DX: Z12.31 Encounter for screening mammogram for malignant neoplasm of breast (principal)
CPT/HCPCS: 77063; 77067

== ENCOUNTER → 2020-11-07 15:45 | Outpatient (CLI) | payer MEDICARE, SELFPAY ==
[2019-04-17 10:03] VITALS: BMI 36.1
--- NOTE | 2020-11-07 15:48 | RAD_ITS ---
STUDY: X-RAY - PELVIS AND BILATERAL HIPS REASON FOR EXAM: Severe bilateral posterior hip pain, sciatica. TECHNIQUE: AP view of the pelvis.? 2 views of the right hip, and 2 views of the left hip were obtained. COMPARISON: None. FINDINGS: Normal visualized soft tissue structures. There is bilateral sacroiliac arthrosis. Normal bilateral iliac wings and visualized sacrum. Normal bilateral superior and inferior pubic rami. There are degenerative changes of the pubic symphysis. Normal bilateral ischial tuberosities. Normal visualized right femoral head. Normal right acetabulum. Normal right hip joint. There are marginal osteophytes, mild subchondral cystic change of the acetabulum and mild to moderate joint space narrowing of the left hip joint. RAD/Hips B/L min 2 views w/ Pelvis IMPRESSION: Left hip arthrosis. Bilateral sacroiliac arthrosis. Electronically Signed: Brendon Cruz MD at 11:34 EDT Tel , Service support ,
--- NOTE | 2020-11-07 15:48 | RAD_ITS ---
STUDY: X-RAY - LUMBAR SPINE REASON FOR EXAM: Female, 75 years old. Sciatica. TECHNIQUE: 5 view(s) of the lumbar spine were obtained. COMPARISON: None FINDINGS: Osteopenia. Normal lumbar lordosis. There is no substantial scoliosis. There is a normal alignment of the vertebrae. Normal vertebral bodies and endplates. Diffuse facet sclerosis. Diffuse mild intervertebral disc space narrowing with small osteophytes most marked at L1-2 and L2-3. 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 The soft tissue structures are unremarkable. RAD/L/S Spine Min 4 Views IMPRESSION: Osteopenia with mild diffuse lumbar spondylosis. 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 No acute abnormality, evidence of erosive changes or evidence of fusion. Electronically Signed: Mandeep Vázquez MD at 10:10 EDT , Service support ,
== END ==
PROVIDERS: PCP Family Medicine; Referring Provider Family Medicine; Visit Provider Family Medicine
DX: M25.551 Pain in right hip (principal); M25.552 Pain in left hip; M54.30 Sciatica, unspecified side
CPT/HCPCS: 72110; 73521

== ENCOUNTER → 2020-11-18 | Outpatient (CLI) | payer MEDICARE, SELFPAY ==
[2019-04-17 10:03] VITALS: BMI 36.1
[2020-11-18 17:09] LABS: Probe Check PASS; Specimen Processing Control PASS
== END | disposition home or self-care (01) ==
PROVIDERS: PCP Family Medicine; Referring Provider Family Medicine; Visit Provider Family Medicine
DX: Z20.822 Contact with and (suspected) exposure to COVID-19 (principal)
CPT/HCPCS: 87635; U0005; U0003

== ENCOUNTER → 2020-11-20 15:18 | Outpatient (CLI) | payer MEDICARE, SELFPAY ==
[2019-04-17 10:03] VITALS: BMI 36.1
--- NOTE | 2020-11-20 15:20 | BI_ITS ---
MAMMOGRAPHY - BILATERAL SCREENING REASON FOR EXAM: Female, 75 years old. Routine annual screening examination. PERTINENT HISTORY: Grandmother with breast cancer. TECHNIQUE: Digital bilateral breast darleen (3D mammographic acquisition) in the CC and MLO projections. 2-D mediolateral oblique (MLO) and craniocaudad (CC) views of both breasts were obtained. CAD: Full Field Digital Mammography with Computer Added Detection was performed. COMPARISON: Comparison is made with prior study dated 11/14/2019 and 09/18/2017. FINDINGS: Breast Composition: There are scattered areas of fibroglandular density. There are no dominant masses or suspicious calcifications. Stable small bilateral benign appearing axillary lymph nodes. No other significant abnormalities are identified. There has been no significant change since the prior study. BI/SCRN MAMM (CAD)W/DARLEEN BILAT IMPRESSION: Stable bilateral screening mammogram. Yearly follow-up mammogram recommended. (A) ASSESSMENT CATEGORY: BIRADS Category 2: Benign. A letter regarding these results will be sent to the patient by the facility within 30 days. Approximately 10% of breast cancers are not detected by mammography. A normal mammogram should not delay biopsy of a clinically suspicious abnormality. [id number] Electronically Signed: Elias John MD at 15:59 EDT , Service support ,
== END ==
PROVIDERS: PCP Family Medicine; Referring Provider Family Medicine; Visit Provider Family Medicine
DX: Z12.31 Encounter for screening mammogram for malignant neoplasm of breast (principal)
CPT/HCPCS: 77063; 77067

== ENCOUNTER 2021-05-02 18:19 | Outpatient (CLI) | payer MEDICARE, SELFPAY | END 2021-05-02 23:59 | disposition short-term general hospital (02) | PROVIDERS: PCP Family Medicine; Visit Provider Family Medicine | DX: Z20.822 Contact with and (suspected) exposure to COVID-19 (principal) | CPT/HCPCS: 87635; U0003; U0005 ==

== ENCOUNTER 2021-11-04 15:26 | Emergency (ER) | payer MEDICARE, SELFPAY ==
[2021-11-04 15:27] VITALS: BP 219/111; PULSE 97; RESP 16; TEMP 36.3; O2SAT 97; BMI 36.1
[2021-11-04 15:35] VITALS: BP 219/80
--- NOTE | 2021-11-04 15:58 | EDS_ITS ---
HPI History of Present Illness Chief Complaint: Hypertension Narrative Narrative: 76-year-old female presenting from the urgent care with back pain. Patient was seen and assessed and had x-rays of the thoracic spine which were ultimately negative. It was noted at the office that she had elevated blood pressure and she was sent to the ER. Patient denies any visual complaints, lightheadedness, headache, nausea. She states he is eating and drinking normally. Is making normal urine and stool. She states she is in her normal state of health. She states that other than the back pain which started about 5 AM yesterday while she was sleeping she feels okay. She states that the pain is in her mid back and seems to radiate upwards. It is worse with twisting and bending. She does not any anterior chest pain, shortness of breath, lightheadedness. Patient currently unsure of what medication dose she is on for her losartan HCTZ. She states that while she was at the urgent care the physician she saw expressed concern that this could be an atypical chest pain and she wanted to be checked out for this. She is a previous smoker. She has no cardiac history. Her only medical problem stated is hypertension. [facility] Medical History Hypertension Home Medications cholecalciferol (vitamin D3) 25 mcg (1,000 unit) tablet 1,000 unit PO MOWEFR SUPPLEMENT 12/14/16 [History Last Taken Unknown] losartan 100 mg-hydrochlorothiazide 25 mg tablet 1 ea PO DAILY BP 12/14/16 [History Last Taken Unknown] multivitamin 1 ea PO DAILY SUPPLEMENT 12/14/16 [History Last Taken Unknown] amlodipine 5 mg tablet 5 mg PO DAILY #30 tabs 11/04/21 [Rx Last Taken Unknown] tramadol 50 mg tablet (Ultram) 50 mg PO Q8H PRN pain 3 days #12 tabs 11/04/21 [Rx Last Taken Unknown] Allergy/AdvReac Type Severity Reaction Status Date / Time Penicillins Allergy Hives Verified 11/04/21 15:29 etodolac AdvReac Upset Verified 11/04/21 15:29 Stomach lisinopril AdvReac COUGH Verified 11/04/21 15:29 Social History Smoking Status: Former smoker ROS ROS ED Constitutional Constitutional ED: Denies chills or fever(s) Eyes Eyes: Denies change in vision or diplopia ENT ENT ED: Denies rhinorrhea or sore throat Cardiovascular Cardiovascular: Denies chest pain, palpitations or racing heartbeat Respiratory/Chest Respiratory/Chest: Denies cough or dyspnea Gastrointestinal Gastrointestinal: Denies abdominal pain or constipation Genitourinary Genitourinary ED: Denies dysuria or hematuria Musculoskeletal Musculoskeletal: Denies arthralgias or back pain Integumentary Denies abscess Neurologic Neurologic: Denies headache(s) or paresthesias Psychiatric Psychiatric: Denies anxiety or depression EXAM Physical Exam Const Vital Signs: 11/04/21 15:27 11/04/21 15:35 11/04/21 15:36 Temperature 97.4 F L Temperature Source Temporal Pulse Rate 97 Respiratory Rate 16 Respiratory Effort Normal Non-Labored Respiratory Pattern Normal Blood Pressure 219/111 H 219/80 H Blood Pressure Mean 147 126 Pulse Ox 97 Oxygen Delivery Method Room Air 11/04/21 16:19 11/04/21 16:40 Temperature Temperature Source Pulse Rate 78 Respiratory Rate 20 H Respiratory Effort Respiratory Pattern Blood Pressure 188/76 H Blood Pressure Mean 113 Pulse Ox 94 Oxygen Delivery Method Room Air Room Air Positive well nourished General Appearance ED: NAD; Negative for pallor HEENT Reports moist mucous membranes Eyes PERRL and EOMs intact bilaterally Neck no lymphadenopathy Chest Wall inspection of chest normal and palpation of chest normal Resp normal respiratory effort and clear to auscultation bilaterally Auscultation: Negative for rales, rhonchi or wheezes Cardio regular rate GI normal to inspection, nondistended, normoactive bowel sounds Back/Spine Thoracic Spine / Upper Back: paraspinal muscle tenderness right T9, T10, T11 and T12 Extremity normal to inspection Neuro oriented x3 and CN's II-XII intact bilaterally Sensorium / Orientation: alert Psych mental status grossly normal Skin no rashes or lesions noted General Skin Exam: Negative for jaundice or pallor MDM MDM MDM Narrative Medical decision making narrative: Patient presenting with back pain. She wants to make sure this is not cardiac related although she does not seem to have any symptoms except for the pain here. She is on pain for greater than 24 hours. She already had a thoracic spine x-ray. Blood pressure is now 189/89. Patient cannot remember the dose of her losartan HCTZ. Heart score is 1. CBC and BMP are unremarkable. High- sensitivity troponin is 7 after over 24 hours of pain so I do not believe this is cardiac in nature. Patient was treated with morphine and Zofran with good relief of her pain. Blood pressure has come down on its own to 188/76. Chest x-ray on my interpretation shows no acute cardiopulmonary process and the radiologist agree. I spoke with Dr. Tabor who was the patient's PCP. For her blood pressure recommended starting Norvasc 5 mg p.o. daily in addition to her losartan HCTZ. The dose of her losartan HCTZ is 100/25 mg. He recommended giving her Ultram for pain at home. She is a follow-up appointment for next Wednesday. She is to keep this. Return precautions discussed. Impression: 1. Thoracic strain 2. Atypical chest pain 3. Hypertension established has had a controlled Lab Data Attestation: I reviewed the patient's lab results. Labs: Laboratory Results - last 24 hr 11/04/21 11/04/21 16:25 16:25 WBC 6.4 RBC 4.22 Hgb 13.4 Hct 40.9 MCV 96.9 MCH 31.8 MCHC 32.8 RDW Std Deviation 50.8 H RDW Coeff of Romain 14.3 Plt Count 246 MPV 10.4 Immature Gran % (Auto) 0.300 Neut % (Auto) 55.6 Lymph % (Auto) 31.4 Gallia % (Auto) 8.0 Eos % (Auto) 4.1 Baso % (Auto) 0.6 Absolute Neuts (auto) 3.5 Absolute Lymphs (auto) 2.00 Nucleated RBC % 0 Sodium 140 Potassium 4.5 Chloride 108 H Carbon Dioxide 27.0 Anion Gap 5 BUN 15 Creatinine 0.75 Estim Creat Clear Calc 37.24 Est GFR (MDRD) Af Amer 97 Est GFR (MDRD) Non-Af 80 BUN/Creatinine Ratio 19.9 Glucose 90 Calcium 9.5 Troponin I High Sens 7 Radiography Diagnostic Testing: Clinical Impression(s) from Imaging Studies Chest X-Ray 11/04/21 16:15 IMPRESSION: There are no acute findings. Electronically Signed: Johnathon Abarca MD at 16:43 EDT , Discharge Plan Triage Chief Complaint: Hypertension ED Provider: Chris De Leon Dx/Rx/DC Orders Instructions: ED Hypertension, Established, ED Thoracic Spine Strain Prescriptions: New tramadol [Ultram] 50 mg tablet 50 mg PO Q8H PRN (Reason: pain) 3 Days Qty: 12 0RF amlodipine 5 mg tablet 5 mg PO DAILY Qty: 30 0RF No Action multivitamin 1 EACH tablet 1 ea PO DAILY losartan-hydrochlorothiazide 1 EACH tablet 1 ea PO DAILY cholecalciferol (vitamin D3) 1,000 UNIT tablet 1,000 unit PO MOWEFR Primary Care Provider: Johny Tabor Referrals: Johny Tabor MD [Primary Care Provider] - Disposition Disposition: Home, Self Care
--- NOTE | 2021-11-04 15:59 | EKG12_ITS ---
Test Reason : hypertension Blood Pressure : / mmHG Vent. Rate : 076 BPM Atrial Rate : 076 BPM P-R Int : 156 ms QRS Dur : 084 ms QT Int : 392 ms P-R-T Axes : 038 005 056 degrees QTc Int : 441 ms Normal sinus rhythm Normal ECG Confirmed by REILLY BERGER, EDUARDO ([id number]), web content editor MASHA BURKS ([id number]) on 11/06/2021 2:01:30 PM Referred By: Moises Confirmed By:EDUARDO GROVER MD
--- NOTE | 2021-11-04 16:15 | RAD_ITS ---
STUDY: XR Chest 1 View 11/04/2021 4:21 PM REASON FOR EXAM: Female, 76 years old. CHEST PAIN chest pain COMPARISON: None TECHNIQUE: XR Chest 1 View FINDINGS: There is no demonstrated pleural abnormality. Normal heart size. Normal mediastinum. Normal lindy. Prominent appearing increased interstitial lung markings. Normal visualized pulmonary arteries. There is atherosclerotic calcification of the aortic arch with tortuosity. There are diffuse degenerative changes of the visualized thoracic spine. There is degenerative osteoarthritis of the bilateral shoulders. There is no demonstrated abnormality of the visualized soft tissue structures of the upper abdomen. RAD/Chest 1 View (Portable) IMPRESSION: There are no acute findings. Electronically Signed: Johnathon Abarca MD at 16:43 EDT ,
[2021-11-04] MEDS: Morphine 4 MG/ML Syringe IV (16:17)
[2021-11-04] MEDS: Ondansetron 4 MG/2 ML Vial IV (16:17)
[2021-11-04 16:40] VITALS: BP 188/76; PULSE 78; RESP 20; O2SAT 94
[2021-11-04 16:50] LABS: Absolute Neutrophil Count 3.5 X10^3/uL (2.0-7.7); Basophil# 0.04 X10^3/uL; Basophil% 0.6 % (0-1); Eosinophil# 0.26 X10^3/uL; Eosinophils% 4.1 % (0-5); Hematocrit 40.9 % (37-47); Hemoglobin 13.4 g/dL (12.0-15.0); Lymphocyte % 31.4 % (19-41); Mean Corp Hgb Conc 32.8 g/dL (32-36); Mean Corpuscular Hgb 31.8 pg (27.0-32.0); Mean Corpuscular Volume 96.9 fL (81-99); Mean Platelet Vol. 10.4 fl (6.2-12.0); Monocyte# 0.51 X10^3/uL; NRBC Flagged by Analyzer 0 % (0-5); Neutrophil # 3.54 X10^3/uL (2.7-7.7); Neutrophil % 55.6 % (47-70); Platelet Count 246 K/mm3 (150-450); RBC Distribution Width CV 14.3 % (11.6-14.6); RBC Distribution Width SD 50.8 fl (35.1-43.9); Red Blood Count 4.22 M/mm3 (4.2-5.4); White Blood Count 6.4 K/mm3 (4.4-11.0)
[2021-11-04 17:15] LABS: Anion Gap 5 (5-15); BUN 15 mg/dL (7-18); BUN/Creat Ratio 19.9 RATIO (10-20); Calcium,Total 9.5 mg/dL (8.5-10.1); Chloride 108 mmol/L (98-107); Creatinine, Serum 0.75 mg/dL (0.55-1.02); EST Glomerular Filtration Rate 80 mL/min (>60); Est Glom Filt Rate - Afr Amer 97 mL/min (>60); Estimated Creatinine Clearance 37.24 ml/min; Glucose 90 mg/dL (74-106); Potassium 4.5 mmol/L (3.5-5.1); Sodium Level 140 mmol/L (136-145); Troponin-I HS 7 pg/mL (3.0-54.0)
[2021-11-04] MEDS: traMADol 50 MG Tablet PO (17:48)
[2021-11-04] MEDS: amLODIPine 5 MG Tablet PO (17:49)
[2021-11-04 17:56] VITALS: BP 179/71; PULSE 73; RESP 18; O2SAT 97
== END 2021-11-04 17:57 | disposition home or self-care (01) ==
PROVIDERS: Emergency Provider Student in an Organized Health Care Education/Training Program; PCP Family Medicine; Visit Provider Student in an Organized Health Care Education/Training Program
DX: I10 Essential (primary) hypertension (principal); R07.89 Other chest pain; M54.9 Dorsalgia, unspecified; S29.019A Strain of muscle and tendon of unspecified wall of thorax, initial encounter; Z79.899 Other long term (current) drug therapy; Z87.891 Personal history of nicotine dependence
CPT/HCPCS: 71045; 80048; 84484; 85025; 93005; 96374; 96375; 99285; J2405

== ENCOUNTER 2021-11-05 20:01 | Emergency (ER) | payer MEDICARE, SELFPAY ==
[2021-11-05 20:02] VITALS: BP 177/82; PULSE 89; RESP 15; TEMP 36.5; O2SAT 95; BMI 36.1
--- NOTE | 2021-11-05 20:47 | ED.VIS.BACK ---
HPI History of Present Illness Chief Complaint: Back Informant: patient and spouse/S.O. Onset/Context/Timing Onset: Days Context: Gradual Onset Injury: lifting Timing: Continuous Quality: Dull and Aching Location: Thoracic Current Severity: Mild Maximum Severity: Moderate Worsened by: improves with Movement Relieved by: Nothing Associated Symptoms Associated Symptoms: Negative for Numbness, Tingling, Radiation to Right Leg, Radiation to Left Leg, Fever, Abdominal Pain, Dysuria, Unable to Ambulate, Unable to Transfer, Urinary Retention, Urinary Incontinence, Constipation or Fecal Incontinence Narrative Narrative: 76-year-old female history of hypertension. No prior back history of surgery. She does have a large grandson she has been caring around her house. Denies any fall injury or trauma. No fever. No chest pain or shortness of breath. Patient was seen both in urgent care in the emergency department yesterday had films of her thoracic spine and chest which showed chronic degenerative changes but no acute process. Was started on tramadol which is done nothing for her pain and additional blood pressure medication. Her primary care physician to start her on hydrocodone. She is complaining of same pain. Worse with movement. Denies any numbness or weakness to upper or lower extremities. Prior similar symptoms: No Recent Illness/Hospitalization: No PFSH PFS Medical History Carpal tunnel syndrome of left wrist Carpal tunnel syndrome of right wrist Hypertension Home Medications cholecalciferol (vitamin D3) 25 mcg (1,000 unit) tablet 1,000 unit PO MOWEFR SUPPLEMENT 12/14/16 [History Last Taken Unknown] losartan 100 mg-hydrochlorothiazide 25 mg tablet 1 ea PO DAILY BP 12/14/16 [History Last Taken Unknown] multivitamin 1 ea PO DAILY SUPPLEMENT 12/14/16 [History Last Taken Unknown] amlodipine 5 mg tablet 5 mg PO DAILY #30 tabs 11/04/21 [Rx Last Taken Unknown] hydrocodone-acetaminophen 5 - 325 mg PO/SL 4X/DAY PRN PRN Pain 11/05/21 [History Last Taken Unknown] metaxalone 800 mg tablet 800 mg PO TID 7 days #21 tabs 11/05/21 [Rx Last Taken Unknown] Allergy/AdvReac Type Severity Reaction Status Date / Time Penicillins Allergy Hives Verified 11/05/21 20:06 etodolac AdvReac Upset Verified 11/05/21 20:06 Stomach lisinopril AdvReac COUGH Verified 11/05/21 20:06 Surgical History H/O tubal ligation History of knee surgery Social History Smoking Status: Former smoker ROS ROS ED ROS Narrative Back pain. Review of Systems ROS Unobtainable: Denies due to encephalopathy Constitutional Constitutional ED: Denies chills Eyes Eyes: Denies blurry vision ENT ENT ED: Denies ear pain Cardiovascular Cardiovascular: Denies chest pain Respiratory/Chest Respiratory/Chest: Denies dyspnea Gastrointestinal Gastrointestinal: Denies abdominal pain Genitourinary Genitourinary ED: Denies dysuria Musculoskeletal Musculoskeletal: Reports back pain; Denies arthralgias Neurologic Neurologic: Denies headache(s) Psychiatric Psychiatric: Denies anxiety Endocrine Endocrinology: Denies cold intolerance Hematologic/Lymphatic Hematologic/Lymphatic: Denies easy bleeding Allergic/Immunologic Allergic/Immunologic ED: Denies mouth swelling EXAM Physical Exam Narrative Exam Narrative: 76-year-old female no acute distress vital signs stable afebrile. Pulse ox 95% on room air no hypoxia. H EENT exam unremarkable atraumatic. C-spine nontender neck no lymphadenopathy. Lungs clear to auscultation bilaterally. Heart regular rhythm no murmur. Chest were nontender. Abdomen soft nontender. Moving all 4 extremities. Neurovascularly intact. Normal motor strength. Normal sensation. Normal range of motion. Back cervical, thoracic lumbar spine nontender parathoracic soft tissue on the right side of the mid thoracic region is tender to palpation consistent with a muscle strain and spasm. Neurologic exam normal. Normal motor strength and sensation. Awake alert and oriented. Const Vital Signs: 11/05/21 20:02 Temperature 97.7 F L Temperature Source Temporal Pulse Rate 89 Respiratory Rate 15 Blood Pressure 177/82 H Blood Pressure Mean 113 Pulse Ox 95 Oxygen Delivery Method Room Air Positive well nourished, well developed and obese; Negative for cachectic, contractures or unkempt General Appearance ED: well developed and NAD; Negative for unkempt, cachectic, contractures or pallor Nutritional Appearance: obese; Negative for cachectic HEENT Reports moist mucous membranes Negative for trauma or tenderness Eyes PERRL and EOMs intact bilaterally General Eye ED: Negative for pale conjunctiva or scleral icterus Neck no lymphadenopathy, supple and no JVD General: Negative for tenderness Thyroid: Negative for other Resp normal respiratory effort and clear to auscultation bilaterally Effort and Inspection: Negative for pain with movement Auscultation: Negative for rales, rhonchi or wheezes Cardio regular rate, regular rhythm, S1 normal heart sound, S2 normal heart sound and no murmurs GI normal to inspection, nondistended, normoactive bowel sounds, soft to palpation, non-tender, non-distended and no masses Inspection: Negative for abdominal distention Auscultation: Negative for hyperactive bowel sounds Palpation: Negative for tender or guarding Back/Spine normal to inspection and no thoracic nor lumbar tenderness Back/Spine Narrative: Right-sided mid, parathoracic tenderness consistent myofascial strain and spasm. Cervical Spine: Negative for cervical spine tenderness Thoracic Spine / Upper Back: paraspinal muscle tenderness Lumbar Spine / Lower Back: Negative for ROM limited Extremity normal to inspection Neuro no sensory deficits noted Sensorium / Orientation: alert; Negative for confused, lethargic or stuporous Motor Exam: strength 5/5 throughout Psych mental status grossly normal Appearance: Negative for unkempt Attitude: No agitated Mood & Affect: Negative for depressed or sad Skin no rashes or lesions noted General Skin Exam: Negative for jaundice or pallor Lesions: No lesion noted Rashes: No rashes noted Trauma: Negative for abrasion Wounds: Negative for wounds noted MDM MDM MDM Narrative Medical decision making narrative: 76-year-old female had a work-up done yesterday reviewed her thoracic spine and chest x-rays. There were unremarkable and chronic changes. This appears to be myofascial strain and muscle spasm. She is already on both tramadol and hydrocodone for pain. She will be given IM shot of morphine with p.o. Zofran. She will be placed on Skelaxin for home. As a muscle relaxant for muscle spasm. Discharge Plan Triage Chief Complaint: Back ED Provider: Braxton Gallo Dx/Rx/DC Orders Clinical Impression: Back muscle spasm Instructions: ED Back Spasm, No Trauma Prescriptions: New metaxalone 800 mg tablet 800 mg PO TID 7 Days Qty: 21 0RF No Action multivitamin 1 EACH tablet 1 ea PO DAILY losartan-hydrochlorothiazide 1 EACH tablet 1 ea PO DAILY cholecalciferol (vitamin D3) 1,000 UNIT tablet 1,000 unit PO MOWEFR amlodipine 5 mg tablet 5 mg PO DAILY Qty: 30 0RF hydrocodone-acetaminophen 5 - 325 mg PO/SL 4X/DAY PRN PRN (Reason: Pain) Primary Care Provider: Johny Tabor Referrals: Johny Tabor MD [Primary Care Provider] - 1 Week if not improving Activity Restrictions/Additional Instructions: This appears to be muscle spasm of your upper back. Hot shower, warm bath and massage. A massage gun may help also. Motrin for pain and inflammation. You can use the pain meds have already given you. I wrote you for the muscle relaxant Skelaxin which can take 1 pill 3 times a day for a week. This should progressively improve if not follow-up. Disposition Disposition: Home, Self Care
[2021-11-05] MEDS: Ondansetron ODT 4 MG Tablet PO (20:49)
[2021-11-05] MEDS: morphine 10 MG/ML Syringe IM (20:49)
== END 2021-11-05 21:04 | disposition home or self-care (01) ==
PROVIDERS: Emergency Provider Emergency Medicine; PCP Family Medicine; Visit Provider Emergency Medicine
DX: M62.830 Muscle spasm of back (principal); I10 Essential (primary) hypertension; E66.9 Obesity, unspecified; Z87.891 Personal history of nicotine dependence; Z79.899 Other long term (current) drug therapy
CPT/HCPCS: 96372; 99283

== ENCOUNTER 2021-12-25 12:00 | Outpatient (RCR) | payer MEDICARE, SELFPAY ==
--- NOTE | 2021-11-17 16:06 | HP.PTEVAL ---
Patient's Visit Information LEWIS SILVA is a 76 year old F referred to Physical Therapy by LOUISA VILLAGRAN with a diagnosis of Musculoskeletal back pain, foraminal stenosis of cervical spine. Date of Evaluation: 11/17/21 Physical Therapist: Reynaldo Santiago DPT - Visit Plan Frequency: 2x /Week Duration: 6 Weeks Plan: Start with calming down her symptoms. Consider modalities US and manual. She has TENS at home and plans to use. Work on ROM of thoracic spine as tolerated. Once phase has reduced progress into postural strengthening as able. Promote walking routine and active mobility at home. - Subjective Pt. is here today for her initial evaluation with diagnosis of Musculoskeletal back pain, foraminal stenosis of cervical spine. Pt. reports waking up on Nov 03 of this year and having intense pain in her mid back. Close to the same time she started feeling N/T in all of her fingers of her R hand, which has become worse over the past 2 weeks. She rates pain as a 9/10 at R side of mid thoracic spine and 10/10 at worst, 7-8/10 at best. She reports medication does very little and has taken several kinds while she was a hospital for 10 days. See went home last Wednesday. She is unable to lie flat, has to sleep in reclining chair. She is not getting much sleep secondary to pain. She is hopeful to reduce symptoms in order to get back to all recreational and house hold chores without limitations. pt. to follow up with PCP on Wed. MRI- L sided spinal stenosis C6-C7 region. - Pain R sided thoracic spine Pain Intensity (Out of 10): 9 Pain Intensity Range: 8, 10 - Objective POSTURE: Pt. has increased thoracic kyphosis in stance and sitting. Slight lateral lean to L side in both positions. PALPATION: Pt. has tenderness at R side of thoracic erector spinea. No pain with palpation of lateral R rib musculature. She reports having mild issues with spring testing at L5-L8 (hypomobility noted). More painful along R sided erector spinae with testing. NEURO: normal sensation to light and sharp touch of BUEs. Pt. reports N/T, but similar sensation. Normal DTR of BUEs. ROM: CERVICAL SPINE: flexion nil loss NE, rotation min loss bilat NE, SB min loss bilat NE, extension min loss mild increase NW. B SHOULDERS: full motions, mild increase in R sided thoracic pain wtih end range flexion/abd. Thoracic spine: flexion nil loss NE, exten mod loss increase NW (worse of all movements today), SB mod loss B- mild increase NW, rotation min loss bilat increase NW. MMT: Pt. has decent strength throughout BUEs. symmetrical. 4+/5 throughout. [employer]apons [employer] strength- 15# on R , 27# on L. GAIT: Pt. ambulates with FWW. She reports being more unsteady since getting back home, unsure if it is from meds or pain, likely both. Pt. unable to fully lie down so hard to truly assess symptoms. - Special Tests C/S Radiculapathy - Left Upper limb tension test: Negative C/S Radiculapathy - Right Upper limb tension test: Negative C/S Radiculapathy - Left Spurlings: Negative C/S Radiculapathy - Right Spurlings: Negative C/S Radiculapathy - Left Cervical distraction: Negative C/S Radiculapathy - Right Cervical distraction: Negative C/S Radiculapathy - Left Relief test: Negative C/S Radiculapathy - Right Relief test: Negative C/S Radiculapathy - Valsalva: Negative Cervical Sitting: Protrusion - Mechanical Response: No effect Cervical Sitting: Protrusion - Symptoms During Testing: No effect Cervical Sitting: Protrusion - Symptoms After Testing: No effect Cervical Sitting: Retraction - Mechanical Response: No effect Cervical Sitting: Retraction - Symptoms During Testing: No effect Cervical Sitting: Retraction - Symptoms After Testing: No effect Cervical Sitting: Retraction-Extension - Mechanical Response: No effect Cerv Sitting: Retraction-Extension - Symptoms During Testing: No effect Cerv Sitting: Retraction-Extension - Symptoms After Testing: No effect Cervical Sitting: Sidebend Right - Mechanical Response: No effect Cervical Sitting: Sidebend Right - Symptoms During Testing: No effect Cervical Sitting: Sidebend Right - Symptoms After Testing: No effect Cervical Sitting: Sidebend Left - Mechanical Response: No effect Cervical Sitting: Sidebend Left - Symptoms During Testing: No effect Cervical Sitting: Sidebend Left - Symptoms After Testing: No effect Cervical Sitting: Rotation Right - Mechanical Response: No effect Cervical Sitting: Rotation Right - Symptoms During Testing: No effect Cervical Sitting: Rotation Right - Symptoms After Testing: No effect Cervical Sitting: Rotation Left - Mechanical Response: No effect Cervical Sitting: Rotation Left - Symptoms During Testing: No effect Cervical Sitting: Rotation Left - Symptoms After Testing: No effect Cervical Sitting: Flexion - Mechanical Response: No effect Cervical Sitting: Flexion - Symptoms During Testing: No effect Cervical Sitting: Flexion - Symptoms After Testing: No effect Thoracic Sitting: Flexion - Mechanical Response: No effect Thoracic Sitting: Flexion - Symptoms During Testing: No effect Thoracic Sitting: Flexion - Symptoms After Testing: No effect Thoracic Sitting: Extension - Mechanical Response: No effect Thoracic Sitting: Extension - Symptoms During Testing: Increases Thoracic Sitting: Extension - Symptoms After Testing: No worse Thoracic Sitting: Right rotation - Mechanical Response: No effect Thoracic Sitting: Right Rotation - Symptoms During Testing: No effect Thoracic Sitting: Right Rotation - Symptoms After Testing: No effect Thoracic Sitting: Left rotation - Mechanical Response: No effect Thoracic Sitting: Left Rotation - Symptoms During Testing: No effect Thoracic Sitting: Left Rotation - Symptoms After Testing: No effect - Balance/Special Test Scores Oswestry Low Back Score: 30 - Goals Goal 1:: LTG: Pt. to be I with HEP. Goal Time Frame: 4-6 Weeks Goal 2:: LTG: Pt. to have increased thoracic ROM to full without increase in symptoms. Goal Time Frame: 4-6 Weeks Goal 3:: STG: Pt. to sleep throughout the night without increase in symptoms. Goal Time Frame: 2-4 Weeks Goal 4:: STG: Pt. to tolerate walking with 0-2/10 pain. Goal Time Frame: 2-4 Weeks Goal 5:: LTG: Pt. to have decreased R hand N/T by 50%. 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 Goal Time Frame: 4-6 Weeks - Rehabilitation Potential Physical Therapy Diagnosis: Pt. has signs and symptoms consistent with Musculoskeletal back pain, foraminal stenosis of cervical spine. Pt. had tenderness with palpation of R sided thoracic erector spinae. She did has some tingling in her R hand throughout, which was not changed with testing today. She has very tender at R sided thoracic erector spine and presented with limited thoracic ROM secondary to increased pain. Pt. would benefit from PT to address ROM, decrease pain and improve posture. Rehabilitation Potential: Good - Anticipated Interventions Patient/Client Instruction: Educate patient on: Condition, Plan of Care, Risk Factors, Benefits of Fitness Program For the Purpose of:: To improve decision making, To facilitate caregiver knowledge, To improve self management, To prevent re-injury, To improve ability to perform tasks related to life management, To improve tolerance to ADL's Therapeutic Exercise to Include: Strength training, Power training, Postural training, Flexibilty training, Passive ROM, Active ROM, Dynamic Lumbar Stabilization, Faraz Exercises, Scapular Strength/Stabilization For the Purpose of:: To decrease pain, To decrease swelling/inflammation, To increase ROM, To improve nutrient delivery to tissue, To increase oxygenation perfusion, To improve muscle performance and motor function Manual Therapy Techniques to Include: Trigger point massage, Mobilization, Soft tissue mobilization For the Purpose of:: To decrease pain, To decrease swelling/inflammation, To increase ROM, To improve nutrient delivery to tissue, To increase oxygenation perfusion, To improve muscle performance and motor function, To improve ability to perform ADL's Cryotherapy (ice pack, ice massage): Yes Thermo therapy (hot pack): Yes Ultrasound (thermal/non thermal): Yes For the Purpose of:: To decrease pain, To decrease swelling/inflammation, To increase ROM Thank you for the opportunity to evaluate your patient. For Medicare and Medicare HMO plans, please review the plan of care and approve it. It will need to be FAXED BACK to us at [phone] for Medicare purposes. For Medicare only, by signing this I certify the plan of care. Please let me know if there are questions or concerns regarding this plan of care. Physician Signature: Date:
== END 2021-12-25 19:00 | disposition home or self-care (01) ==
LOC: PT 12:00
PROVIDERS: PCP Family Medicine
DX: M48.02 Spinal stenosis, cervical region (principal)
CPT/HCPCS: 97035; 97110; 97140; 97161

== ENCOUNTER → 2022-03-03 | Outpatient (CLI) | payer MEDICARE, SELFPAY ==
--- NOTE | 2022-03-03 07:47 | BI_ITS ---
MAMMOGRAPHY - BILATERAL SCREENING REASON FOR EXAM: Female, 76 years old. Routine annual screening examination. PERTINENT HISTORY: Grandmother with breast cancer. TECHNIQUE: Digital bilateral breast darleen (3D mammographic acquisition) in the CC and MLO projections. 2-D mediolateral oblique (MLO) and craniocaudad (CC) views of both breasts were obtained. CAD: Full Field Digital Mammography with Computer Added Detection was performed. COMPARISON: Comparison is made with prior study dated 11/20/2020 and 11/14/2019. FINDINGS: Breast Composition: There are scattered areas of fibroglandular density. There are no dominant masses or suspicious calcifications. Stable small benign appearing bilateral axillary lymph nodes. No other significant abnormalities are identified. There has been no significant change since the prior study. BI/SCRN MAMM (CAD)W/DARLEEN BILAT IMPRESSION: Stable bilateral screening mammogram. Yearly follow-up mammogram recommended. (A) ASSESSMENT CATEGORY: BIRADS Category 2: Benign. A letter regarding these results will be sent to the patient by the facility within 30 days. Approximately 10% of breast cancers are not detected by mammography. A normal mammogram should not delay biopsy of a clinically suspicious abnormality. [id number] Electronically Signed: Elias John MD at 8:38 EST ,
== END | disposition home or self-care (01) ==
LOC: OPBI 07:46
PROVIDERS: PCP Family Medicine; Visit Provider Family Medicine
DX: Z12.31 Encounter for screening mammogram for malignant neoplasm of breast (principal)
CPT/HCPCS: 77063; 77067

== ENCOUNTER → 2022-12-28 | Outpatient (CLI) | payer MEDICARE, SELFPAY ==
[2022-12-28 12:04] LABS: Absolute Lymphocyte Count 2.44 X10^3/uL (0.83-4.51); Absolute Neutrophil Count 2.6 X10^3/uL (2.0-7.7); Basophil# 0.03 X10^3/uL; Basophil% 0.5 % (0-1); Eosinophil# 0.15 X10^3/uL; Eosinophils% 2.6 % (0-5); Hematocrit 41.8 % (37-47); Hemoglobin 13.5 g/dL (12.0-15.0); Lymphocyte # 2.44 X10^3/ul (0.83-4.51); Lymphocyte % 42.3 % (19-41); Mean Corp Hgb Conc 32.3 g/dL (32-36); Mean Corpuscular Volume 99.1 fL (81-99); Mean Platelet Vol. 10.7 fl (6.2-12.0); Monocyte# 0.54 X10^3/uL; Monocyte% 9.4 % (0-10); NRBC Flagged by Analyzer 0 % (0-5); Platelet Count 257 K/mm3 (150-450); RBC Distribution Width CV 13.2 % (11.6-14.6); Red Blood Count 4.22 M/mm3 (4.2-5.4); White Blood Count 5.8 K/mm3 (4.4-11.0)
[2022-12-28 12:35] LABS: ALB/GLOB Ratio 1.1 RATIO (0.9-2.4); AST(SGOT) 18 U/L (15-37); Alanine Aminotransfer ALT/SGPT 26 U/L (13-56); Albumin, Serum 3.9 g/dL (3.2-5.0); Alkaline Phosphatase 30 U/L (45-117); Anion Gap 5 (5-15); BUN 13 mg/dL (7-18); BUN/Creat Ratio 20.3 RATIO (10-20); Calcium,Total 9.3 mg/dL (8.5-10.1); Chloride 103 mmol/L (98-107); Cholesterol 183 mg/dL (200); Creatinine, Serum 0.64 mg/dL (0.55-1.02); EST Glomerular Filtration Rate 96 mL/min (>60); Est Glom Filt Rate - Afr Amer 116 mL/min (>60); Globulin 3.7 g/dL (2.2-4.2); Glucose 99 mg/dL (74-106); High Density Lipoprotein 43 mg/dL; Protein, Total 7.6 g/dL (6.4-8.2); Sodium Level 138 mmol/L (136-145); Triglycerides 180 mg/dL; Very Low Density Lipoprotein 36 mg/dL (5-40)
== END | disposition home or self-care (01) ==
LOC: MTLAB 10:50
PROVIDERS: PCP Nurse Practitioner Family; Referring Provider Nurse Practitioner Family; Visit Provider Nurse Practitioner Family
DX: I10 Essential (primary) hypertension (principal); E78.5 Hyperlipidemia, unspecified; E55.9 Vitamin D deficiency, unspecified
CPT/HCPCS: 36415; 80053; 80061; 82306; 85025

== ENCOUNTER → 2023-01-05 | Outpatient (CLI) | payer MEDICARE, SELFPAY ==
--- NOTE | 2023-01-05 07:20 | US_ITS ---
PROCEDURES: ULTRASOUND AORTA REASON FOR EXAM: Female, 77 years old. FAMILY HX OF AORTIC ANEURYSM TECHNIQUE: Ultrasound evaluation of the aorta was performed with real-time and static niño-scale imaging. COMPARISON: None. FINDINGS: There is tortuous elongation of the abdominal aorta. Atherosclerotic calcific plaques. Aorta measures: Proximal 2.0 cm. Middle 1.7 cm. Distal 1.5 cm. Aorta measure transversely: Proximal 2.5 cm. Middle 1.7 cm. Distal 1.6 cm. Right iliac artery measures: 0.8 cm. Right iliac artery measure transversely: 1.1 cm. Left iliac artery measures: 0.9 cm. Left iliac artery measure transversely: 1.1 cm. There is no demonstrated aneurysm.. US/Aorta IMPRESSION: No evidence of abdominal aortic aneurysm. Atherosclerotic calcific plaques. Electronically Signed: Elias John MD at 12:41 EDT ,
--- NOTE | 2023-01-05 08:20 | BD_ITS ---
STUDY: DUAL ENERGY X-RAY ABSORPTIOMETRY / DXA REASON FOR EXAM: Female, 77 years old. M810 TECHNIQUE: Bone Mineral Density (BMD) measurements of lumbar spine and bilateral hips were obtained. COMPARISON: None. FINDINGS: Lumbar Spine (L1-L4): g/cm2 (1.193) / T-score (1.3) / Z-score (3.8) Findings are suggestive of normal bone density with a low fracture risk. Left Femur Total: g/cm2 (1.110) / T-score (1.4) / Z-score (3.2) Left Femoral Neck: g/cm2 (0.902) / T-score (0.5) / Z-score (2.6) Right Femur Total: g/cm2 (1.093) / T-score (1.2) / Z-score (3.0) Right Femoral Neck: g/cm2 (0.838) / T-score (-0.1) / Z-score (2.0) BD/Dexa Bone Density Study IMPRESSION: The patient is considered normal as outlined below according to World Kevin Organization (WHO) criteria with a low fracture risk. Reference Information: The T-score is the number of standard deviations above or below the standard which is normal for young adults at their peak bone mineral density. The World Health Organization (WHO) interprets the T-scores as follows: Above -1 Normal bone density Between -1 and -2.5 Osteopenia Equal to / or below -2.5 Osteoporosis As a practical clinical guideline, osteopenia may be graded as follows: Mild -1 through -1.5 Moderate -1.6 through -2.0 Severe -2.1 through -2.4 The Z-score is the number of standard deviations above or below age-matched controls. A Z-score of less than -1.5 would be considered abnormal. References: 1. NIH Osteoporosis and Related Bone Diseases www osteo.org 2. International Society for Clinical Densitometry www iscd.org 3. National Osteoporosis Foundation www nof.org Electronically Signed: Elias John MD at 13:24 EDT ,
== END | disposition home or self-care (01) ==
PROVIDERS: PCP Nurse Practitioner Family; Referring Provider Nurse Practitioner Family; Visit Provider Nurse Practitioner Family
DX: Z13.820 Encounter for screening for osteoporosis (principal); Z82.49 Family history of ischemic heart disease and other diseases of the circulatory system; M81.0 Age-related osteoporosis without current pathological fracture
CPT/HCPCS: 76775; 77080

== ENCOUNTER → 2023-03-08 | Outpatient (CLI) | payer MEDICARE, SELFPAY ==
--- NOTE | 2023-03-08 10:38 | BI_ITS ---
MAMMOGRAPHY - BILATERAL SCREENING REASON FOR EXAM: Female, 77 years old. Routine annual screening examination. PERTINENT HISTORY: Grandmother with breast cancer. TECHNIQUE: Digital bilateral breast darleen (3D mammographic acquisition) in the CC and MLO projections. 2-D mediolateral oblique (MLO) and craniocaudad (CC) views of both breasts were obtained. CAD: Full Field Digital Mammography with Computer Added Detection was performed. COMPARISON: Comparison is made with prior study dated March 03, 2022 and November 20, 2020. FINDINGS: Breast Composition: There are scattered areas of fibroglandular density. There are no dominant masses or suspicious calcifications. Stable small benign-appearing bilateral axillary lymph nodes. No other significant abnormalities are identified. There has been no significant change since the prior study. BI/SCRN MAMM (CAD)W/DARLEEN BILAT IMPRESSION: Stable bilateral screening mammogram. Yearly follow-up mammogram recommended. (A) ASSESSMENT CATEGORY: BIRADS Category 2: Benign. A letter regarding these results will be sent to the patient by the facility within 30 days. Approximately 10% of breast cancers are not detected by mammography. A normal mammogram should not delay biopsy of a clinically suspicious abnormality. [id number] Electronically Signed: Elias John MD at 13:22 EST ,
== END | disposition home or self-care (01) ==
LOC: OPBI 10:37
PROVIDERS: PCP Nurse Practitioner Family; Referring Provider Nurse Practitioner Family; Visit Provider Nurse Practitioner Family
DX: Z12.31 Encounter for screening mammogram for malignant neoplasm of breast (principal)
CPT/HCPCS: 77063; 77067

== ENCOUNTER → 2023-09-21 | Outpatient (CLI) | payer MEDICARE, SELFPAY | END | disposition home or self-care (01) | LOC: LAB 12:46 | PROVIDERS: PCP Nurse Practitioner Family; Referring Provider Family Medicine; Visit Provider Family Medicine | DX: R82.90 Unspecified abnormal findings in urine (principal) | CPT/HCPCS: 87086 ==

== ENCOUNTER → 2023-12-28 | Outpatient (CLI) | payer MEDICARE, SELFPAY ==
[2023-12-28 12:30] LABS: Absolute Lymphocyte Count 2.64 X10^3/uL (0.83-4.51); Absolute Neutrophil Count 2.9 X10^3/uL (2.0-7.7); Basophil# 0.02 X10^3/uL; Basophil% 0.3 % (0-1); Eosinophil# 0.27 X10^3/uL; Eosinophils% 4.3 % (0-5); Hematocrit 41.8 % (37-47); Hemoglobin 13.3 g/dL (12.0-15.0); Lymphocyte # 2.64 X10^3/ul (0.83-4.51); Lymphocyte % 41.8 % (19-41); Mean Corp Hgb Conc 31.8 g/dL (32-36); Mean Corpuscular Volume 100.7 fL (81-99); Mean Platelet Vol. 12.1 fl (6.2-12.0); Monocyte# 0.52 X10^3/uL; Monocyte% 8.2 % (0-10); NRBC Flagged by Analyzer 0 % (0-5); Neutrophil # 2.86 X10^3/uL (2.7-7.7); Neutrophil % 45.2 % (47-70); Platelet Count 103 K/mm3 (150-450); RBC Distribution Width CV 13.2 % (11.6-14.6); RBC Distribution Width SD 49.1 fl (35.1-43.9); Red Blood Count 4.15 M/mm3 (4.2-5.4); White Blood Count 6.3 K/mm3 (4.4-11.0)
[2023-12-28 12:57] LABS: Vitamin D,25 Hydroxy 37.3 ng/mL
[2023-12-28 13:48] LABS: ALB/GLOB Ratio 1.1 RATIO (0.9-2.4); AST(SGOT) 19 U/L (15-37); Alanine Aminotransfer ALT/SGPT 23 U/L (13-56); Albumin, Serum 3.8 g/dL (3.2-5.0); Alkaline Phosphatase 36 U/L (45-117); Anion Gap 3 (5-15); BUN 15 mg/dL (7-18); BUN/Creat Ratio 20.7 RATIO (10-20); Calcium,Total 9.8 mg/dL (8.5-10.1); Chloride 104 mmol/L (98-107); Cholesterol 184 mg/dL (200); Creatinine, Serum 0.72 mg/dL (0.55-1.02); EST Glomerular Filtration Rate 83 mL/min (>60); Est Glom Filt Rate - Afr Amer 100 mL/min (>60); Globulin 3.6 g/dL (2.2-4.2); Glucose 113 mg/dL (74-106); High Density Lipoprotein 45 mg/dL; Potassium 4.8 mmol/L (3.5-5.1); Protein, Total 7.4 g/dL (6.4-8.2); Sodium Level 138 mmol/L (136-145); Triglycerides 155 mg/dL; Very Low Density Lipoprotein 31 mg/dL (5-40)
== END | disposition home or self-care (01) ==
LOC: BFHLAB 09:17
PROVIDERS: PCP Nurse Practitioner Family; Referring Provider Nurse Practitioner Family; Visit Provider Nurse Practitioner Family
DX: I10 Essential (primary) hypertension (principal); E78.5 Hyperlipidemia, unspecified; E55.9 Vitamin D deficiency, unspecified
CPT/HCPCS: 36415; 80053; 80061; 82306; 85025

== ENCOUNTER → 2024-11-15 | Outpatient (CLI) | payer MEDICARE, SELFPAY ==
--- NOTE | 2024-11-15 10:58 | BI_ITS ---
EXAM: SCRN MAMM (CAD)W/DARLEEN BILAT DATE: 11/15/2024 CLINICAL HISTORY: F, Age 79 y/o , SCREENING Grandmother with breast cancer. TECHNIQUE: SCRN MAMM (CAD)W/DARLEEN BILAT COMPARISON: Prior exam(s) dated March 08, 2023.. FINDINGS: TISSUE DENSITY: There are scattered areas of fibroglandular density. Bilateral Breast Mammographic Findings: No significant masses, calcifications or other abnormalities are identified. Stable small benign-appearing bilateral axillary lymph nodes. No suspicious masses, areas of developing architectural distortion, or suspicious calcifications. There has been no significant interval change. BI/SCRN MAMM (CAD)W/DARLEEN BILAT IMPRESSION: Stable examination. OVERALL FINAL ASSESSMENT BI-RADS 2: BENIGN RECOMMENDATION: Routine annual follow-up in 1 Year A letter with findings and recommendations will be mailed to the patient. Reading Location: [id number]
== END | disposition home or self-care (01) ==
LOC: OPBI 10:57
PROVIDERS: PCP Nurse Practitioner Family; Referring Provider Nurse Practitioner Family; Visit Provider Nurse Practitioner Family
DX: Z12.31 Encounter for screening mammogram for malignant neoplasm of breast (principal)
CPT/HCPCS: 77063; 77067